=== PATIENT | female | born 1980 | race Asian ===

== ENCOUNTER → 2017-03-16 | Outpatient (RCR) | payer OTHER ==
[~2017-03-16] MED LIST: EXCETAB80 PO
== END ==
LOC: M PT 02-24 10:25
PROVIDERS: ATTEND Family Medicine
DX: Z51.89 Encounter for other specified aftercare (principal); M75.41 Impingement syndrome of right shoulder

== ENCOUNTER 2017-03-23 14:14 | Outpatient (RCR) | payer OTHER ==
[2017-03-31] MEDS ORDERED: EXCETAB80 PO (09:08)
== END 2017-04-16 | disposition home or self-care (01) ==
LOC: M PT 14:14
PROVIDERS: ATTEND Family Medicine
DX: Z51.89 Encounter for other specified aftercare (principal); M75.41 Impingement syndrome of right shoulder

== ENCOUNTER → 2017-03-23 | Outpatient (CLI) | payer OTHER ==
--- NOTE | 2017-03-23 10:15 | REP ---
Right lower extremity deep vein duplex ultrasound for thrombus and right lower extremity venous ultrasound for reflux: Right lower extremity vein duplex ultrasound for thrombus: The deep veins demonstrate normal compression, normal Doppler color flow and normal Doppler waveforms with respiration augmentation at multiple levels from the popliteal vein to the common femoral vein. Impression: There is no right lower extremity deep vein thrombus. Right lower extremity venous evaluation for reflux: There is reflux at the common femoral vein and reflux at the greater saphenous vein/femoral vein junction. There is reflux in the greater saphenous vein in the mid thigh. There is no greater saphenous vein reflux at the knee or below the knee. A collateral vein is seen in the mid to distal greater saphenous vein measuring 3.2 mm. Superior to this collateral there is reflux in the mid greater saphenous vein. Inferior to the collateral no reflux is seen. This collateral connects to a varicose vein. Signed by Aníbal Moore MD 03/23/2017 10:06 A
== END ==
LOC: M RAD 08:05
PROVIDERS: ATTEND Surgery Vascular Surgery
DX: I86.8 Varicose veins of other specified sites (principal)

== ENCOUNTER 2017-04-14 05:39 | Day surgery (SDC) | payer OTHER ==
[~2017-04-14] VITALS: Ht 154.9 cm; Wt 71.2 kg
[2017-04-14] MEDS ORDERED: D5W/LR 1,000 ML IV SCH (05:45)
[2017-04-14 06:42] LABS: CONTROL LINE UCG INT CTR LINE PRESENT
[2017-04-14] MEDS ORDERED: LIDOCAINE W/EPINEPHRINE 1% 20ML VIAL As Ordered ONE (07:12)
[2017-04-14] MEDS ORDERED: PROPOFOL 500 MG/50 ML VIAL As Ordered ONE (07:43)
[2017-04-14] MEDS ORDERED: MIDAZOLAM INJ 2 MG/2 ML VIAL (J2250) As Ordered ONE (07:43)
[2017-04-14] MEDS ORDERED: fentaNYL 100 MCG/2 ML INJECTION (J3010) As Ordered ONE (07:43)
[2017-04-14] MEDS ORDERED: dexameTHASONE 4 MG/ML 1ML VIAL (J1100) As Ordered ONE (07:43)
[2017-04-14] MEDS ORDERED: ONDANSETRON 4MG/2ML VIAL (J2405) As Ordered ONE (07:44)
[2017-04-14] MEDS ORDERED: LIDOCAINE 2% INJ 100 MG/5 ML SDV (FOR ANES.) As Ordered ONE (07:44)
[2017-04-14] MEDS ORDERED: KETOROLAC 60 MG/2 ML VIAL (J1885) As Ordered ONE (07:44)
[2017-04-14] MEDS ORDERED: LR 1,000 ML IV SCH (09:15)
[2017-04-14] MEDS ORDERED: PERCOCET 5MG/325MG TAB PO PRN (09:15)
[2017-04-14] MEDS ORDERED: ONDANSETRON 4MG/2ML VIAL (J2405) IV PRN (09:15)
[2017-04-14 10:20] VITALS: BP 114/88
--- NOTE | 2017-04-22 12:05 | RO ---
DATE OF PROCEDURE: 04/14/2017 PREOPERATIVE DIAGNOSIS: Right greater saphenous vein valvular insufficiency, right lower extremity painful varicose veins. POSTOPERATIVE DIAGNOSIS: Right greater saphenous vein valvular insufficiency, right lower extremity painful varicose veins. PROCEDURE: Right greater saphenous vein radiofrequency ablation, less than 10 stab phlebectomy of painful varicose veins in the right lower extremity. SURGEON: Hood Howell MD CUSTOMER CARE REPRESENTATIVE: ANESTHESIA: Local monitored anesthesia care (MAC). ESTIMATED BLOOD LOSS: 20 mL. IV FLUIDS: 900 mL. SPECIMENS: None. COMPLICATIONS: None. DRAINS: None. IMPLANTS: None. INDICATION: Patient is a 36-year-old female with painful varicose veins in her right lower extremity who underwent an ultrasound showing greater saphenous vein valvular insufficiency. Patient will undergo a right greater saphenous vein radiofrequency ablation and stab phlebectomy of the painful varicosities. DESCRIPTION OF PROCEDURE: Patient was taken to the operating room, placed supine on the operating room table, and the right lower extremity was prepped and draped in a standard surgical fashion. The greater saphenous vein below knee region was cannulated with a micropuncture needle under ultrasound guidance. The catheter was advanced 2 cm distal to the saphenofemoral junction through the greater saphenous vein. The tumescent solution was injected circumferentially around the greater saphenous vein after which the greater saphenous vein was ablated from 2 cm distal to the saphenofemoral junction to the below knee entry site. Stab phlebectomy of less than 10 varicose veins was then performed with the stab phlebectomy sites closed with jose manuel. Dressings were then applied. Patient tolerated the procedure well. All instrument, sponge and needle counts were correct at the end of the case. There were no complications. Dr. Howell was present for and directed the entire case. Patient was transferred to the recovery room, awake, alert, extubated and in stable condition. Edited 05/08/17 indu ALBRECHT
== END 2017-04-14 10:25 | disposition home or self-care (01) ==
LOC: M SDC 05:39
PROVIDERS: ATTEND Surgery Vascular Surgery
DX: I83.811 Varicose veins of right lower extremity with pain (principal); G43.909 Migraine, unspecified, not intractable, without status migrainosus; E16.2 Hypoglycemia, unspecified; I87.2 Venous insufficiency (chronic) (peripheral)
CPT/HCPCS: 36475; 37799; 84703; J1100; J1885; J2250; J2405; J3010

== ENCOUNTER → 2017-04-24 | Outpatient (CLI) | payer OTHER ==
--- NOTE | 2017-04-24 12:10 | REP ---
Clinical: Right lower extremity pain status post ablation. Technique: Boston scale and color Doppler evaluation using linear high frequency transducer. Findings: Ultrasound examination of the right lower extremity deep venous structures from the common femoral vein to the popliteal vein demonstrates normal compressibility flow and wave patterns in response to respiration and augmentation. There is no evidence for deep venous thrombosis. Impression: No evidence for deep venous thrombosis. Signed by Rupert Zaldivar MD 04/24/2017 12:01 P
== END ==
LOC: M RAD 10:37
PROVIDERS: ATTEND Surgery Vascular Surgery
DX: I83.811 Varicose veins of right lower extremity with pain (principal)

== ENCOUNTER → 2017-05-15 | Outpatient (CLI) | payer OTHER | LOC: M RAD 09:45 | PROVIDERS: ATTEND Surgery Vascular Surgery | DX: I82.0 Budd-Chiari syndrome (principal) ==

== ENCOUNTER 2018-01-06 10:07 | Outpatient (RCR) | payer OTHER | END 2018-01-14 | LOC: M PT 10:07 | DX: Z51.89 Encounter for other specified aftercare (principal); M25.561 Pain in right knee | CPT/HCPCS: 97110 ==

== ENCOUNTER 2018-01-19 09:32 | Outpatient (RCR) | payer OTHER | END 2018-02-13 | LOC: M PT 09:32 | DX: Z51.89 Encounter for other specified aftercare (principal); M25.561 Pain in right knee ==

== ENCOUNTER 2018-02-15 08:36 | Outpatient (RCR) | payer OTHER | END 2018-03-16 | LOC: M PT 08:36 | DX: Z51.89 Encounter for other specified aftercare (principal); M25.561 Pain in right knee ==

== ENCOUNTER 2018-03-23 08:05 | Outpatient (RCR) | payer OTHER | END 2018-04-16 | LOC: M PT 08:05 | DX: Z51.89 Encounter for other specified aftercare (principal); M25.561 Pain in right knee | CPT/HCPCS: 97010 ==

== ENCOUNTER → 2020-04-24 | Outpatient (CLI) | payer OTHER ==
--- NOTE | 2020-04-24 15:57 | REPMRS ---
Patient History The patient states she had a clinical breast exam in January 2020. No known family history of cancer. 3D TOMOSYNTHESIS WAS PERFORMED. [facility] lifetime risk for breast cancer is 10.2 %. [place] DENSITY A. Digital Woman Screen Mammo: April 24, 2020 - Exam #: [id number] Bilateral CC and MLO view(s) were taken. Technologist: Zoe Zavaleta, Technologist No prior studies available for comparison. FINDINGS: There are scattered fibroglandular densities. There is a mild amount of residual fibroglandular tissue which is fairly symmetric. There is no dominant mass, architectural distortion, or clustered microcalcification suggestive of malignancy. Assessment: BI-RADS/ACR category 1 mammogram. Negative Mammogram. Recommendation Routine screening mammogram in 1 year (for women over age 40). This mammogram was interpreted with the aid of an FDA-approved computer-aided dectection system. Electronically Signed By: Aníbal Boston MD 04/24/20 [id number]
== END ==
LOC: M WHC 15:00
PROVIDERS: ATTEND Family Medicine
DX: Z12.31 Encounter for screening mammogram for malignant neoplasm of breast (principal)